=== PATIENT | female | born 1985 | race Caucasian/White ===

== ENCOUNTER 2018-10-12 07:29 | Emergency (ER) | payer OTHER ==
[~2018-10-12] VITALS: Ht 160 cm; Wt 102.2 kg
[~2018-10-12 07:29] MED LIST: IBUP-1544 PO; PREN1TAB79 PO
[2018-10-12 07:55] VITALS: RESP 18; Ht 160 cm; Wt 102.2 kg
[2018-10-12] MEDS ORDERED: KETOROLAC 30 MG INJ IV STA (09:45)
[2018-10-12] MEDS ORDERED: TRAM50TA2 PO (11:08)
[2018-10-12] MEDS ORDERED: IBUP-1542 PO (11:08)
--- NOTE | 2018-10-12 11:14 | ERD ---
ER Documentation Chief Complaint Chief Complaint C/O RIGHT MID ABD. PAIN, SORE THROAT, HEADACHE, COUGH FOR 5 DAYS HPI 32-year-old female presents with 5-day history of cough although she has a primary complaint of right lower chest wall pain and right upper quadrant abdominal pain, worse with deep breathing. She denies any fevers, vomiting, lower abdominal pain. She history of gallstones denies previous cardiac or pulmonary conditions. Denies any calf swelling, hemoptysis, syncope. ROS All systems reviewed and are negative except as per history of present illness. Medications Home Meds Active Scripts Ibuprofen* (Motrin*) 600 Mg Tab, 600 MG PO Q6, #30 TAB Prov:RAO RODGERS MD 10/12/18 Tramadol HCl (Tramadol HCl) 50 Mg Tablet, 50 MG PO Q4 PRN for PAIN, #20 TAB Prov:RAO RODGERS MD 10/12/18 Ibuprofen* (Ibuprofen*) 800 Mg Tablet, 800 MG PO Q8, #20 TAB 0 Refills Prov:CHRISTIANO GAUTHIER MD 01/09/16 Reported Medications Vit W-Ca,Fe,FA(<1 mg) ( Vitamins) 1 Each Tablet, 1 EACH PO, TAB 01/02/16 Allergies Allergies: Coded Allergies: No Known Drug Allergy (Verified Allergy, Unknown, 01/02/16) PMhx/Soc History of Surgery: Yes ( x 3) Hx Alcohol Use: No Hx Substance Use: No Hx Tobacco Use: No Smoking Status: Never smoker FmHx Family History: No diabetes, No coronary disease, No other Physical Exam Vitals Vital Signs Date Temp Pulse Resp B/P (MAP) Pulse Ox O2 O2 Flow FiO2 Time Delivery Rate 10/12/18 98.4 84 18 126/67 100 07:55 (86) Physical Exam Const: No acute distress. Obese. Head: Atraumatic Eyes: Normal Conjunctiva ENT: Normal External Ears, Nose and Mouth. Neck: Full range of motion. No meningismus. Resp: Clear to auscultation bilaterally Cardio: Regular rate and rhythm, no murmurs Abd: Soft, positive Albright sign. No tenderness McBurney's point. No rebound., non distended. Normal bowel sounds Skin: No petechiae or rashes Back: No midline or flank tenderness Ext: No cyanosis, or edema Neur: Awake and alert Psych: Normal Mood and Affect Result Diagram: 10/12/18 1009 10/12/18 1009 Results 24 hrs Laboratory Tests Test 10/12/18 08:10 10/12/18 09:20 10/12/18 10:09 Urine Color YELLOW Urine Clarity CLEAR Urine pH 5.0 Urine Specific [place] 1.024 Urine Ketones NEGATIVE mg/dL Urine Nitrite NEGATIVE mg/dL Urine Bilirubin NEGATIVE mg/dL Urine Urobilinogen NEGATIVE mg/dL Urine Leukocyte Esterase NEGATIVE Kym/ul Urine Hemoglobin NEGATIVE mg/dL Urine Glucose NEGATIVE mg/dL Urine Total Protein NEGATIVE mg/dl POC Beta HCG, Qualitative NEGATIVE White Blood Count 14.9 10^3/ul Red Blood Count 4.77 10^6/ul Hemoglobin 14.0 g/dl Hematocrit 41.5 % Mean Corpuscular Volume 87.0 fl Mean Corpuscular Hemoglobin 29.4 pg Mean Corpuscular 33.7 g/dl Hemoglobin Concent Red Cell Distribution Width 13.4 % Platelet Count 262 10^3/UL Mean Platelet Volume 10.9 fl Immature Granulocytes % 0.400 % Neutrophils % 72.8 % Lymphocytes % 19.4 % Monocytes % 5.1 % Eosinophils % 1.8 % Basophils % 0.5 % Nucleated Red Blood Cells % 0.0 /100WBC Immature Granulocytes # 0.060 10^3/ul Neutrophils # 10.8 10^3/ul Lymphocytes # 2.9 10^3/ul Monocytes # 0.8 10^3/ul Eosinophils # 0.3 10^3/ul Basophils # 0.1 10^3/ul Nucleated Red Blood Cells # 0.0 10^3/ul Sodium Level 141 mmol/L Potassium Level 4.1 mmol/L Chloride Level 101 mmol/L Carbon Dioxide Level 28 mmol/L Anion Gap 12 Blood Urea Nitrogen 11 mg/dl Creatinine 0.38 mg/dl Est Glomerular Filtrat > 60 mL/min Rate mL/min Glucose Level 96 mg/dl Calcium Level 10.0 mg/dl Total Bilirubin 0.6 mg/dl Direct Bilirubin 0.00 mg/dl Indirect Bilirubin 0.6 mg/dl Aspartate Amino 21 IU/L Transf (AST/SGOT) Alanine 28 IU/L Aminotransferase (ALT/SGPT) Alkaline Phosphatase 76 IU/L Total Protein 9.0 g/dl Albumin 4.9 g/dl Globulin 4.10 g/dl Albumin/Globulin Ratio 1.19 Lipase 104 U/L Current Medications Medications Dose Sig/Hunter Start Time Status Last (Trade) Ordered Route PRN Stop Time Admin Dose Reason Admin Ketorolac 30 mg ONCE STAT 10/12/18 DC 10/12/18 Tromethamine IV 09:45 10:19 (Toradol) 10/12/18 09:47 Procedures/MDM EKG: Rate/Rhythm: Normal Sinus Rhythm with rate equals 75 QRS, ST, T-waves: No changes consistent w/ acute ischemia Impression: No evidence of ischemia or arrhythmia Chest X-ray 1V Interpreted by me: Soft Tissue: No acute abnormalities Bones: No acute abnormalities Mediastinum/Cardiac Silhouette/Lungs: No acute abnormalities. Impression- normal 1 view chest x-ray Right upper quadrant ultrasound shows gallstones without findings of cholecystitis. There is mild common bile duct dilatation correlate with symptoms of choledocholithiasis CBC shows mild leukocytosis. CMP is no acute abnormalities lipase is normal. There is normal and hCG negative. Patient's pain relieved with Tylenol, Toradol. She presents with cough, rather quadrant abdominal pain and findings consistent with gallstones without laboratory evidence of choledocholithiasis, or radiographic evidence of cholecystitis. Patient PERC negative. Patient will be treated with tramadol, ibuprofen, recommendations for primary care and general surgery evaluation for evaluation for definitive treatment of gallstones. She is to return for fevers, vomiting, new worsening symptoms, should otherwise avoid fatty foods and follow-up as directed. The patient was stable with no new complaints during the ER course. Clinically, there is no current evidence to suggest meningitis, sepsis, acute abdomen, pneumonia, stroke, acute coronary syndrome, pulmonary embolism, aortic dissection or any other emergent condition appearing to require further evaluation or hospitalization. Patient counseled regarding my diagnostic impression and care plan. Prior to discharge all questions answered. Pt agrees with treatment plan and understands strict return precautions. Pt is instructed to follow up with primary care provider within 24- 48 hours. Precautionary instructions provided including instructions to return to the ER if not improving or for any worsening or changing symptoms or concerns. Departure Diagnosis: Primary Impression: Gallstones Condition: Stable Patient Instructions: Gallstones Referrals: Fabiola WILL KAMBIZ M.D. LOMIS, THOMAS MD Additional Instructions: Examination shows gallstones today which may be because of pain recheck for fevers, vomiting, new or worsening symptoms. Avoid fatty foods which will worsen gallstone pain. See general surgery for evaluation for gallbladder removal. Likely need authorization from primary doctor for specialist evaluation RAO RODGERS MD Oct 12, 2018 11:14
[2018-10-12 11:33] VITALS: BP 105/54; PULSE 81
== END 2018-10-12 11:35 | disposition home or self-care (01) ==
LOC: FTE 07:29
DX: K80.20 Calculus of gallbladder without cholecystitis without obstruction (principal)
CPT/HCPCS: 71045; 76705; 80053; 81003; 81025; 83690; 85025; 93005; 96374; J1885; Z7502

== ENCOUNTER 2018-12-04 09:56 | Emergency (ER) | payer OTHER ==
[~2018-12-04] VITALS: Ht 162.6 cm; Wt 101.0 kg
[~2018-12-04 09:56] MED LIST changes: +IBUP-1542 PO; +TRAM50TA2 PO
[2018-12-04 10:07] VITALS: Ht 162.6 cm; Wt 101.0 kg
[2018-12-04] MEDS ORDERED: FAMOTIDINE 20 MG TAB PO STA (11:01)
[2018-12-04] MEDS ORDERED: KETOROLAC 60 MG INJ IM STA (11:01)
[2018-12-04] MEDS ORDERED: ONDANSETRON (ODT) 4 MG TAB ODT STA (11:01)
[2018-12-04] MEDS ORDERED: NAPR-985 PO (12:36)
[2018-12-04] MEDS ORDERED: ONDA4TAB14 PO (12:36)
[2018-12-04] MEDS ORDERED: TRAM50TA2 PO (12:39)
--- NOTE | 2018-12-04 13:37 | ERD ---
ER Documentation Chief Complaint Chief Complaint PT HAS AP AND VOMIT INTERMITTANT X 4 DAYS 02/23 HPI History of Present Illness: 33-year-old female with history of gallstones coming in today with complaint of abdominal pain, vomiting, diarrhea. Patient reports symptoms have been present for 4 days. Patient reports pain as spasm and sharp. Pain is intermittent. Patient reports diarrhea after every meal. Denies fever, chills, fatigue, malaise. At home pharmacological/nonpharmacological treatment for symptoms: Denies Denies social concerns; Denies recent foreign travel ROS All systems reviewed and are negative except as per history of present illness. Medications Home Meds Active Scripts Tramadol HCl (Tramadol HCl) 50 Mg Tablet, 50 MG PO Q6 PRN for PAIN, #10 TAB Prov:LEONARDO JEAN BAPTISTE NP 12/04/18 Naproxen* (Naprosyn*) 500 Mg Tablet, 500 MG PO BID PRN for PAIN AND/OR INFLAMMATION, #30 TAB Prov:LEONARDO JEAN BAPTISTE V [employer] 12/04/18 Ondansetron (Ondansetron Odt) 4 Mg Tab.rapdis, 4 MG PO Q6H PRN for NAUSEA AND/OR VOMITING, #10 TAB Prov:LEONARDO JEAN BAPTISTE NP 12/04/18 Ibuprofen* (Motrin*) 600 Mg Tab, 600 MG PO Q6, #30 TAB Prov:RAO RODGERS MD 10/12/18 Tramadol HCl (Tramadol HCl) 50 Mg Tablet, 50 MG PO Q4 PRN for PAIN, #20 TAB Prov:RAO RODGERS MD 10/12/18 Ibuprofen* (Ibuprofen*) 800 Mg Tablet, 800 MG PO Q8, #20 TAB 0 Refills Prov:CHRISTIANO GAUTHIER MD 01/09/16 Reported Medications Vit W-Ca,Fe,FA(<1 mg) ( Vitamins) 1 Each Tablet, 1 EACH PO, TAB 01/02/16 Allergies Allergies: Coded Allergies: No Known Drug Allergy (Verified Allergy, Unknown, 01/02/16) PMhx/Soc History of Surgery: Yes ( x 3) Hx Alcohol Use: No Hx Substance Use: No Hx Tobacco Use: No Smoking Status: Never smoker FmHx Family History: No diabetes, No coronary disease Physical Exam Vitals Vital Signs Date Temp Pulse Resp B/P (MAP) Pulse Ox O2 O2 Flow FiO2 Time Delivery Rate 12/04/18 97.6 70 17 134/74 100 10:07 (94) Physical Exam Const: No acute distress Head: Atraumatic Eyes: Normal Conjunctiva ENT: Normal External Ears, Nose and Mouth. Neck: Full range of motion. No meningismus. Resp: Clear to auscultation bilaterally Cardio: Regular rate and rhythm, no murmurs Abd: Soft, tenderness to palpation to right upper quadrant and epigastric., non distended. Normal bowel sounds. No severe grimacing noted on exam. Skin: No petechiae or rashes Back: No midline or flank tenderness Ext: No cyanosis, or edema Neur: Awake and alert Psych: Normal Mood and Affect Result Diagram: 12/04/18 1117 12/04/18 1117 Results 24 hrs Laboratory Tests Test 12/04/18 11:13 12/04/18 11:17 Bedside Urine pH (LAB) 5.5 Bedside Urine Protein (LAB) 1+ Bedside Urine Glucose (UA) Negative Bedside Urine Ketones (LAB) Negative Bedside Urine Blood Trace-lysed Bedside Urine Nitrite (LAB) Negative Bedside Urine Leukocyte Esterase (L Negative White Blood Count 5.9 10^3/ul Red Blood Count 4.20 10^6/ul Hemoglobin 12.4 g/dl Hematocrit 36.8 % Mean Corpuscular Volume 87.6 fl Mean Corpuscular Hemoglobin 29.5 pg Mean Corpuscular Hemoglobin Concent 33.7 g/dl Red Cell Distribution Width 13.4 % Platelet Count 166 10^3/UL Mean Platelet Volume 10.5 fl Immature Granulocytes % 0.300 % Neutrophils % 47.4 % Lymphocytes % 39.2 % Monocytes % 9.8 % Eosinophils % 3.0 % Basophils % 0.3 % Nucleated Red Blood Cells % 0.0 /100WBC Immature Granulocytes # 0.020 10^3/ul Neutrophils # 2.8 10^3/ul Lymphocytes # 2.3 10^3/ul Monocytes # 0.6 10^3/ul Eosinophils # 0.2 10^3/ul Basophils # 0.0 10^3/ul Nucleated Red Blood Cells # 0.0 10^3/ul Urine Color YELLOW Urine Clarity SLIGHTLY CLOUDY Urine pH 5.0 Urine Specific [place] 1.021 Urine Ketones NEGATIVE mg/dL Urine Nitrite NEGATIVE mg/dL Urine Bilirubin NEGATIVE mg/dL Urine Urobilinogen 1+ mg/dL Urine Leukocyte Esterase NEGATIVE Kym/ul Urine Microscopic RBC 2 /HPF Urine Microscopic WBC 2 /HPF Urine Squamous Epithelial Cells FEW /HPF Urine Mucus MANY /HPF Urine Hemoglobin 1+ mg/dL Urine Glucose NEGATIVE mg/dL Urine Total Protein NEGATIVE mg/dl Sodium Level 142 mmol/L Potassium Level 3.7 mmol/L Chloride Level 105 mmol/L Carbon Dioxide Level 25 mmol/L Anion Gap 12 Blood Urea Nitrogen 11 mg/dl Creatinine 0.50 mg/dl Est Glomerular Filtrat Rate mL/min > 60 mL/min Glucose Level 80 mg/dl Calcium Level 8.7 mg/dl Total Bilirubin 0.6 mg/dl Direct Bilirubin 0.00 mg/dl Indirect Bilirubin 0.6 mg/dl Aspartate Amino Transf (AST/SGOT) 24 IU/L Alanine Aminotransferase (ALT/SGPT) 39 IU/L Alkaline Phosphatase 47 IU/L Total Protein 7.1 g/dl Albumin 4.0 g/dl Globulin 3.10 g/dl Albumin/Globulin Ratio 1.29 Lipase 82 U/L POC Beta HCG, Qualitative NEGATIVE Current Medications Medications Dose Sig/Hunter Start Time Status Last (Trade) Ordered Route PRN Stop Time Admin Dose Reason Admin Famotidine 20 mg ONCE STAT 12/04/18 DC 12/04/18 (Pepcid) PO 11:01 11:28 12/04/18 11:03 Ondansetron 4 mg ONCE STAT 12/04/18 DC 12/04/18 HCl (Zofran ODT 11:01 11:28 Odt) 12/04/18 11:03 Ketorolac 60 mg ONCE STAT 12/04/18 DC 12/04/18 Tromethamine IM 11:01 11:32 (Toradol) 12/04/18 11:03 Procedures/MDM ED course includes a thorough examination and history. Medications: Toradol, Zofran, famotidine Imaging: Gallbladder ultrasound Labs: CBC, CMP, lipase, urinalysis, urine Low suspicion for life-threatening medical emergency. Low suspicion for acute abdominal emergency that requires hospitalization or immediate surgical intervention. Low suspicion for appendicitis as pain is in upper right quadrant. Otherwise healthy patient presenting with constellation of symptoms likely representing uncomplicated gallstones as characterized by history, physical exam findings, lab findings, imaging findings. Urinalysis negative for infection. CBC:no e/o of systemic infection or severe anemia; CMP: no e/o severe acidosis, alkalosis, renal failure, diabetic ketoacidosis, liver disease; lipase within normal limits. Urine negative. Gallbladder imaging results showing: IMPRESSION: Fatty liver. Cholelithiasis without sonographic evidence for cholecystitis. RPTAT: AA .Jovany Marroquin MD, MD Date Time Electronically viewed and signed by .Jovany Marroquin MD, on 12/04/2018 12:26 No respiratory distress, otherwise relatively well appearing and nontoxic. Patient reassessment includes decrease in pain with medications. No vomiting during ER visit. Education discussed regarding diet changes. Disposition given. Patient educated on diagnoses, prescriptions, follow-up care, return precautions. Strict return precautions given for worsening condition; questions answered discharge. Disposition for discharge with followup in 2 days with PCP/clinic. Departure Diagnosis: Primary Impression: Cholelithiasis Cholelithiasis location: other site Biliary obstruction: without biliary obstruction Qualified Codes: K80.80 - Other cholelithiasis without obstruction Additional Impression: Fatty liver Condition: Stable Patient Instructions: Gallstones Referrals: [facility] YOU HAVE RECEIVED A MEDICAL SCREENING EXAM AND THE RESULTS INDICATE THAT YOU DO NOT HAVE A CONDITION THAT REQUIRES URGENT TREATMENT IN THE EMERGENCY DEPARTMENT. FURTHER EVALUATION AND TREATMENT OF YOUR CONDITION CAN WAIT UNTIL YOU ARE SEEN IN YOUR DOCTORS OFFICE WITHIN THE NEXT 1-2 DAYS. IT IS YOUR RESPONSIBILITY TO MAKE AN APPOINTMENT FOR [facility]ARE. IF YOU HAVE A PRIMARY DOCTOR --you should call your primary doctor and schedule an appointment IF YOU DO NOT HAVE A PRIMARY DOCTOR YOU CAN CALL OUR PHYSICIAN REFERRAL HOTLINE AT IF YOU CAN NOT AFFORD TO SEE A PHYSICIAN YOU CAN CHOSE FROM THE FOLLOWING [facility] CLINICS [facility] [address] [facility] [address] [facility]. [facility] [address] [facility] [address] [facility]. [facility] [address] [facility]. [facility]. [address] [facility] [facility] YOU HAVE RECEIVED A MEDICAL SCREENING EXAM AND THE RESULTS INDICATE THAT YOU DO NOT HAVE A CONDITION THAT REQUIRES URGENT TREATMENT IN THE EMERGENCY DEPARTMENT. FURTHER EVALUATION AND TREATMENT OF YOUR CONDITION CAN WAIT UNTIL YOU ARE SEEN IN YOUR DOCTORS OFFICE WITHIN THE NEXT 1-2 DAYS. IT IS YOUR RESPONSIBILITY TO MAKE AN APPOINTMENT FOR [facility]-UP CARE. IF YOU HAVE A PRIMARY DOCTOR --you should call your primary doctor and schedule and appointment IF YOU DO NOT HAVE A PRIMARY DOCTOR YOU CAN CALL OUR PHYSICIAN REFERRAL HOTLINE AT . IF YOU CAN NOT AFFORD TO SEE A PHYSICIAN YOU CAN CHOSE FROM THE FOLLOWING [facility] INSTITUTIONS: [facility] [address] [place] [address] [facility] [address] [place] [address] [facility] [address] [place] [address] Additional Instructions: Thank you very much for allowing us to participate in your care. Your health and safety is our top priority at [facility]. It is important to read all discharge instructions and education provided in your discharge packet. There are no signs of infection in your urine. Your gallbladder ultrasound shows gallstones but does not show any blockages or signs of infection. At this time there is no need for hospitalization due to no acute infection related to your gallstones. *Stop eating fatty foods and fatty red meats* This can make your gallbladder problems worse. Call your primary care doctor TOMORROW for an appointment during the next 2-4 days and bring all the information and medications prescribed. Have prescriptions filled and follow precisely the directions on the label. -Zofran is a medication for nausea/vomitting; take this medication as needed for nausea/vomiting/decreased appetite. -Naproxen is a anti-inflammatory/pain medication; take this medication daily as prescribed for the next week to help with inflammation/pain. -Tramadol is an opiate pain medication; take this medication as needed for m oderate to severe pain. No operating of heavy machinery while taking this medication. It may cause drowsiness. If the symptoms get worse and your provider is unavailable, return to the Emergency Department immediately. If your pain is not controlled with medications or if you continue to have vomiting with use of Zofran, return to emergency room if her condition worsens. LEONARDO JEAN BAPTISTE NP Dec 04, 2018 13:37
[2018-12-04 16:22] VITALS: BP 129/68; PULSE 78; RESP 18
== END 2018-12-04 16:22 | disposition home or self-care (01) ==
LOC: FTE 09:56
DX: K80.80 Other cholelithiasis without obstruction (principal); K76.0 Fatty (change of) liver, not elsewhere classified
CPT/HCPCS: 36415; 76705; 80053; 81001; 81003; 81025; 83690; 85025; 96372; J1885; Z7502; Z7610